=== PATIENT | female | born 1955 | race Caucasian/White ===

== ENCOUNTER 2023-08-19 08:27 | Emergency (ER) | payer MEDICARE ==
[~2023-08-19] VITALS: Ht 157.5 cm; Wt 87.0 kg
[2023-08-19] VITALS (15 sets, daily range): BP systolic 126–174; BP diastolic 67–127
[2023-08-19 09:47] LABS: BASO% 0.4 % (0-3); EOS% 0.7 % (0-8); HEMATOCRIT 46.7 % (37.0-47.0); HEMOGLOBIN 15.3 g/dl (12.0-16.0); IMMATURE GRANULOCYTES 0.6 % (0.0-5.0); LYMPH% 17.3 % (15-41); MEAN CELL VOLUME 96.7 fL CALC (80.0-100.0); MEAN CORPUSCULAR HGB 31.7 pG CALC (26.0-32.0); MEAN CORPUSCULAR HGB CONC 32.8 g/dL CAL (32.0-36.0); MONO% 4.7 % (2-13); NEUT# 6.89 thou/uL (2.00-7.15); NEUT% 76.3 % (42-76); RED BLOOD COUNT 4.83 mill/uL (4.20-5.60); RED CELL DISTRI WIDTH 12.7 % (11.5-15.5)
[2023-08-19 09:53] LABS: URINE BLOOD DIPSTICK Negative (NEGATIVE); URINE GLUCOSE - DIPSTICK >=1000 mg/dL (NEGATIVE); URINE KETONE 15 mg/dL (NEGATIVE); URINE LEUK ESTERASE Negative (NEGATIVE); URINE NITRITE - DIPSTICK Negative (Negative); URINE PROTEIN - DIPSTICK Negative (NEG-TRACE); URINE SPECIFIC GRAVITY 1.025; URINE UROBILINOGEN - DIPSTICK 0.2 E.U./dL (0.2)
[2023-08-19] MEDS ORDERED: LISINOPRIL2.5 MG PO (09:53)
[2023-08-19] MEDS ORDERED: LANTUS SOL100 UNIT/M (09:53)
[2023-08-19] MEDS ORDERED: BUPROPION HCL150 MG PO (09:53)
[2023-08-19] MEDS ORDERED: BAYER ASPIRIN E81 MG PO (09:54)
[2023-08-19] MEDS ORDERED: GLYXAMBI 10-5 M1 TAB (09:54)
[2023-08-19] MEDS ORDERED: PRAVASTATIN SOD10 MG PO (09:54)
[2023-08-19 09:55] LABS: URINE COLOR Yellow
[2023-08-19 10:09] LABS: ALBUMIN 5.1 g/dL (3.2-5.0); ALKALINE PHOSPHATASE 62 u/l (38-126); ANION GAP 18 (6-22 (CALC)); BILIRUBIN, TOTAL 0.8 mg/dL (0.02-1.3); BUN 15 mg/dL (8-23); BUN/CREATININE RATIO 22 (12-20 (CALC)); CARBON DIOXIDE 21 mmol/l (22-30); CHLORIDE 106 mmol/l (95-108); CREATININE 0.7 mg/dL (0.5-1.0); GFR FOR AFR.AMER. > 60 ML/MIN (>=60 (CALC)); GFR OTHER RACES > 60 ML/MIN (>=60 (CALC)); LIPASE 265 u/l (23-300); POTASSIUM 4.5 mmol/l (3.5-5.1); SGOT/AST 37 u/l (9-36); SODIUM 140 mmol/l (137-146); TOTAL PROTEIN 7.6 g/dL (6.3-8.2)
[2023-08-19] MEDS ORDERED: LEVSIN0.125 M1 PO (13:32)
== END 2023-08-19 14:02 | disposition home or self-care (01) ==
LOC: ED 08:27
PROVIDERS: Family Medicine
DX: R10.84 Generalized abdominal pain (principal); I10 Essential (primary) hypertension; E11.9 Type 2 diabetes mellitus without complications; Z79.4 Long term (current) use of insulin; Z90.49 Acquired absence of other specified parts of digestive tract; Z90.710 Acquired absence of both cervix and uterus
CPT/HCPCS: Q9967